=== PATIENT | male | born 1980 | race Caucasian/White ===

== ENCOUNTER 2017-01-24 23:59 | Emergency (ER) | payer OTHER ==
[~2017-01-24] VITALS: Ht 170.1 cm; Wt 88.5 kg
--- NOTE | ~2017-01-24 | EKG ---
[place], [place] ELECTROCARDIOGRAM REPORT NAME: RAFIQ DE SOUZA UNIT #: [id number] ROOM: DOCTOR: JARVIS EDOUARD MD BIRTHDATE: [birth year] DOS: 01/25/2017 TIME: 12:29 a.m. Normal sinus rhythm at rate 91. Normal EKG. JARVIS EDOUARD MD CM:EKGRPT:ELECTROCARDIOGRAM REPORT 1224 1528 JARVIS EDOUARD MD
[~2017-01-24 23:59] MED LIST: ADDERALL 30 MG30 MG PO; ADDERALL5 MG PO; PERCOCET 325 MG1 TA5 PO; PERCOCET 325 MG1 TA6 PO
[2017-01-25 00:25] LABS: BASO # 0.1 10*3/uL (0.0-0.1); BASO % 0.6 % (0.0-1.0); EOS # 0.1 10*3/uL (0.0-0.4); EOS % 1.1 % (1.0-4.0); HEMATOCRIT 44.6 % (42.0-52.0); HEMOGLOBIN 15.2 g/dl (14.0-18.0); LYMPH # 2.8 10*3/uL (1.3-4.4); LYMPH % 34.3 % (27.0-41.0); MEAN CORPUSCULAR HGB CONC 34.1 g/dl (33.0-37.0); MEAN PLATELET VOLUME 9.3 fl (9.6-12.3); MONO # 0.8 10*3/uL (0.1-1.0); MONO % 9.3 % (3.0-9.0); NEUT # 4.4 10*3/uL (2.3-7.9); NEUT % 54.5 % (47.0-73.0); PLATELET COUNT AUTOMATED 295 10*3/uL (130-400); RED CELL DISTRI WIDTH 11.9 % (0-14.5); WHITE BLOOD COUNT 8.1 10*3/uL (4.8-10.8)
[2017-01-25 00:38] LABS: BUN 13 mg/dl (7-24); CARBON DIOXIDE 30 mmol/L (21-32); CHLORIDE 104 mmol/L (98-107); EST GLOM FILT AFRICAN AMERICAN > 60 ml/min; GLUCOSE 127 mg/dL (65-99); POTASSIUM 3.7 mmol/L (3.5-5.1); SODIUM 139 mmol/L (136-145)
[2017-01-25 00:39] LABS: C-REACTIVE PROTEIN < 0.29 MG/DL (0-0.3)
== END 2017-01-25 01:38 | disposition home or self-care (01) ==
LOC: ED 23:59
PROVIDERS: Emergency Medicine Emergency Medical Services
DX: T78.40XA Allergy, unspecified, initial encounter (principal); X58.XXXA Exposure to other specified factors, initial encounter; Z90.49 Acquired absence of other specified parts of digestive tract

== ENCOUNTER 2019-05-31 12:57 | Emergency (ER) | payer OTHER ==
[~2019-05-31] VITALS: Wt 81.6 kg
== END 2019-05-31 13:36 | disposition home or self-care (01) ==
LOC: ED 12:57
DX: Z29.14 Encounter for prophylactic rabies immune globulin (principal)

== ENCOUNTER 2019-06-03 16:42 | Emergency (ER) | payer OTHER ==
[~2019-06-03] VITALS: Ht 170.1 cm; Wt 81.6 kg
== END 2019-06-03 17:02 | disposition home or self-care (01) ==
LOC: ED 16:42
DX: Z23 Encounter for immunization (principal); Z20.3 Contact with and (suspected) exposure to rabies; Z79.899 Other long term (current) drug therapy

== ENCOUNTER 2019-06-07 13:21 | Emergency (ER) | payer OTHER ==
[~2019-06-07] VITALS: Ht 170.1 cm; Wt 83.9 kg
== END 2019-06-07 13:43 | disposition home or self-care (01) ==
LOC: ED 13:21
DX: Z23 Encounter for immunization (principal); Z79.899 Other long term (current) drug therapy

== ENCOUNTER 2019-06-14 15:13 | Emergency (ER) | payer OTHER | END 2019-06-14 15:20 | disposition home or self-care (01) | LOC: ED 15:13 | DX: Z23 Encounter for immunization (principal); Z98.890 Other specified postprocedural states ==

== ENCOUNTER → 2019-06-15 | Outpatient (CLI) | payer OTHER | END | disposition home or self-care (01) | LOC: MRI 10:00 | DX: S79.821A Other specified injuries of right thigh, initial encounter (principal); X58.XXXA Exposure to other specified factors, initial encounter; Y93.89 Activity, other specified; Y92.89 Other specified places as the place of occurrence of the external cause; Y99.8 Other external cause status ==

== ENCOUNTER → 2022-08-29 | Outpatient (CLI) | payer OTHER | END | disposition home or self-care (01) | LOC: RESCLI 13:18 → EDSTATUS 14:17 → RESCLI 14:18 | PROVIDERS: ATTEND Internal Medicine | DX: F90.9 Attention-deficit hyperactivity disorder, unspecified type (principal); Z79.899 Other long term (current) drug therapy ==

== ENCOUNTER → 2024-03-29 | Outpatient (CLI) | payer OTHER | END | disposition home or self-care (01) | LOC: RESCLI 13:54 | PROVIDERS: ATTEND Student in an Organized Health Care Education/Training Program | DX: F90.9 Attention-deficit hyperactivity disorder, unspecified type (principal); Z79.899 Other long term (current) drug therapy ==